=== PATIENT | male | born 1945 | race Caucasian/White ===

== ENCOUNTER 2025-02-04 14:32 | Emergency (ER) | payer MEDICARE ==
[~2025-02-04] VITALS: Ht 175.3 cm; Wt 74.8 kg
[2025-02-04 14:45] VITALS: TEMP 98.4
[2025-02-04] MEDS: TETANUS/DIPHTHERIA TOX ADULT 0.5 ML SYR IM ONE (15:40)
[2025-02-04] MEDS ORDERED: AMOX TR-K CLV1 EAC2 PO (16:47)
[2025-02-04 17:21] VITALS: PULSE 66; RESP 16; O2SAT 99
== END 2025-02-04 17:25 | disposition home or self-care (01) ==
LOC: ER 14:59
DX: S81.011A Laceration without foreign body, right knee, initial encounter (principal); M25.561 Pain in right knee; W18.39XA Other fall on same level, initial encounter; Y93.01 Activity, walking, marching and hiking; Y92.89 Other specified places as the place of occurrence of the external cause; Z96.651 Presence of right artificial knee joint
CPT/HCPCS: 90471; 90714; 99283